=== PATIENT | male | born 1965 | race Caucasian/White ===

== ENCOUNTER → 2016-12-10 | Outpatient (CLI) | payer OTHER ==
[2016-12-13 08:09] LABS: PSA TOTAL <0.1 ng/mL (0.0-4.0)
== END ==
LOC: M WUC 10:46
PROVIDERS: ATTEND Nurse Practitioner Adult Health
DX: C61 Malignant neoplasm of prostate (principal)

== ENCOUNTER → 2018-03-21 | Outpatient (CLI) | payer OTHER ==
[2018-03-21 19:50] LABS: PROSTATIC SPECIFIC AG MONITOR < 0.01 NG/ML (< 4.0)
== END ==
LOC: M WUC 14:11
DX: Z85.46 Personal history of malignant neoplasm of prostate (principal)
CPT/HCPCS: 84153

== ENCOUNTER → 2018-10-28 | Outpatient (CLI) | payer OTHER | LOC: M WUC 08:54 | PROVIDERS: ATTEND Nurse Practitioner Adult Health | DX: Z85.46 Personal history of malignant neoplasm of prostate (principal) ==

== ENCOUNTER → 2019-05-07 | Outpatient (CLI) | payer OTHER | LOC: M WUC 17:01 | PROVIDERS: ATTEND Nurse Practitioner Adult Health | DX: Z85.46 Personal history of malignant neoplasm of prostate (principal) ==

== ENCOUNTER → 2019-06-20 | Outpatient (CLI) | payer OTHER ==
--- NOTE | 2019-06-24 07:33 | SLEEPCENT ---
DATE OF STUDY: 06/20/2019 ORDERED BY: Henrietta Christina Nocturnal polysomnography was performed for evaluation of sleep physiology in this patient with a history of snoring and excessive daytime somnolence. 8 hours and 5 minutes of data were reviewed. There were 273 minutes of sleep identified. Sleep latency was prolonged at 67. REM latency further prolonged at 382 minutes. Sleep architecture showed poor progression, frequent periods of awake and only one REM cycle late in the study. Overall sleep efficiency was 56.9%. The electrocardiogram showed a sinus rhythm with an average heart rate of 64 beats per minute. EEG showed no focal events and normal waveforms for awake and sleep stages. There were 208 respiratory events identified of 10 seconds in duration or greater for an apnea-hypopnea index of 45.7. The events were primarily obstructive not exclusive to sleep stage nor body posture. Arousals from respiratory events occurred 17.8 times per hour and oxygen desaturations were seen into the 80s with some activity in the limb leads, but arousals were few and remaining measures of sleep physiology were normal. IMPRESSIONS: Obstructive sleep apnea syndrome (G4 7.33). Apnea-hypopnea index 45.7. RECOMMENDATIONS: The patient should be encouraged to return to sleep disorder center for pressure therapy. In the interim alcohol and sedative avoidance should be practiced and caution exercise during the operation of motor vehicles. cc: Judd Terry Jr, MD
== END ==
LOC: M SLEEP 19:39
PROVIDERS: ATTEND Nurse Practitioner Adult Health
DX: G47.30 Sleep apnea, unspecified (principal)

== ENCOUNTER → 2019-08-01 | Outpatient (CLI) | payer OTHER ==
--- NOTE | 2019-08-05 12:34 | SLEEPCENT ---
DATE OF PROCEDURE: 08/01/2019 ORDERED BY: Mary Ann Christina NP Nocturnal polysomnography was performed for the titration of pressure therapy in this patient with severe obstructive sleep apnea syndrome. Apnea-hypopnea index 45.7. For testing, a ResMed Air Touch full face mask of medium size was used, 4 cm of water pressure were applied to the circuit and the lights were extinguished. 8 hours and 49 minutes of data were reviewed. There were 307 minutes of sleep identified. Sleep latency was mildly prolonged 22.5 minutes. REM latency was more so prolonged at 419 minutes. Sleep architecture improved with optimal pressure therapy. Overall sleep efficiency was 58.6%. The electrocardiogram showed a sinus rhythm with an average heart rate of 60 beats per minute. EEG showed normal waveforms for awake and sleep. Respiratory events were reasonably palliated with C-PAP to a pressure of +11. There was some persistent activity in the limb leads throughout. Limb movement arousal index was 10.4. IMPRESSION: Obstructive sleep apnea syndrome (G47.33) RECOMMENDATIONS: Nightly use of pressure therapy 11 cm of water.
== END ==
LOC: M SLEEP 19:44
PROVIDERS: ATTEND Nurse Practitioner Adult Health
DX: G47.33 Obstructive sleep apnea (adult) (pediatric) (principal)

== ENCOUNTER → 2019-11-05 | Outpatient (CLI) | payer OTHER ==
[2019-11-06 23:07] LABS: PSA TOTAL <0.1 ng/mL (0.0-4.0)
== END ==
LOC: M WUC 09:43
PROVIDERS: ATTEND Nurse Practitioner Adult Health
DX: Z85.46 Personal history of malignant neoplasm of prostate (principal)

== ENCOUNTER → 2020-02-11 | Outpatient (REF) | payer OTHER ==
[2020-02-11 18:24] LABS: ESTIMATED AVERAGE GLUCOSE 355 MG/DL (60-110); HEMOGLOBIN A1c > 14.0 %
[2020-02-13 04:11] LABS: LDL DIRECT 47 mg/dL (0-99)
== END ==
LOC: M LAB REF 16:23
PROVIDERS: ATTEND Internal Medicine
DX: E78.00 Pure hypercholesterolemia, unspecified (principal)

== ENCOUNTER → 2020-02-24 | Outpatient (REF) | payer OTHER ==
[2020-02-28 03:07] LABS: Alkaline Phosphatase Iso-Bone 24 % (12-68); Alkaline Phosphatase Iso-Intes 25 % (0-18); Alkaline Phosphatase Iso-Liver 51 % (13-88); TOTAL ALK PHOS 99 IU/L (39-117)
== END ==
LOC: M LAB REF 16:34
PROVIDERS: ATTEND Internal Medicine
DX: R74.8 Abnormal levels of other serum enzymes (principal)

== ENCOUNTER → 2020-06-14 | Outpatient (CLI) | payer OTHER | LOC: M WUC 09:19 | PROVIDERS: ATTEND Nurse Practitioner Adult Health | DX: Z85.46 Personal history of malignant neoplasm of prostate (principal) | CPT/HCPCS: 36415; G0103 ==

== ENCOUNTER → 2020-11-17 | Outpatient (CLI) | payer OTHER ==
--- NOTE | 2020-11-17 08:19 | REP ---
INDICATION: RUQ PAIN COMPARISON: None. TECHNIQUE: Real time dumont scale ultrasound examination using curved array transducer. FINDINGS: Liver demonstrates multiple non cystic hypoechoic ovoid lesions scattered throughout the liver the largest of which is identified in the right lobe measuring 7.1 x 4.1 x 7.4 cm. These lesions are relatively new as compared to CT dated 04/20/2007 Pancreas is incompletely evaluated due to interposed bowel gas. The gallbladder is normal and without gallstones, wall thickening, or pericholecystic fluid. No biliary ductal dilatation is appreciated and the common bile duct measures 3.9 mm diameter. Right kidney is normal in reniform shape without hydronephrosis and measures 10.8 x 6.8 x 6.7 cm. No ascites in the visualized right upper quadrant. IMPRESSION: 1. Multiple hypoechoic presumed mass lesions throughout the liver measuring up to 7.1 cm. Findings are nonspecific by ultrasound and differential ranges from benign to malignant lesions. Pre and postcontrast CT of the abdomen and pelvis is recommended for further investigation. <Electronically signed by Neil Sidhu > 11/17/20 [id number]
== END ==
LOC: M RAD 07:05
PROVIDERS: ATTEND Internal Medicine
DX: R10.11 Right upper quadrant pain (principal)

== ENCOUNTER → 2020-11-26 | Outpatient (CLI) | payer OTHER ==
[~2020-11-26] MED LIST: ACET1TAB55; BD P0.9I2; CEFP200T PO; CREO3600; FENO145T7 PO; GASTROGRAFIN SOLUTION 30ML (Q9963) As Ordered ONE; ISOVUE-370 76% 100ML VIAL As Ordered ONE; JARD1TAB PO; METF500T13 PO; METR-265 PO; ONDA-84; PROC10TA5; ZOLO100T; ZOLO100T PO
== END ==
LOC: M RAD 15:29
PROVIDERS: ATTEND Internal Medicine
DX: D37.6 Neoplasm of uncertain behavior of liver, gallbladder and bile ducts (principal)
CPT/HCPCS: 74178; Q9963; Q9967

== ENCOUNTER → 2021-02-09 | Outpatient (CLI) | payer OTHER | LOC: M WUC 09:52 | PROVIDERS: ATTEND Nurse Practitioner Adult Health | DX: Z85.46 Personal history of malignant neoplasm of prostate (principal) ==

== ENCOUNTER 2021-05-22 15:34 | Inpatient (IN) | payer OTHER ==
[~2021-05-22] VITALS: Ht 172.7 cm; Wt 83.3 kg
[2021-05-22] MEDS ORDERED: ZOLO100T (16:33)
[2021-05-22] MEDS ORDERED: PROC10TA4 (16:33)
[2021-05-22] MEDS ORDERED: JARD1TAB PO (16:33)
[2021-05-22] MEDS ORDERED: CEFP200T PO (16:33)
[2021-05-22] MEDS ORDERED: ZOLO100T PO (16:33)
[2021-05-22] MEDS ORDERED: ACET1TAB55 (16:33)
[2021-05-22] MEDS ORDERED: METR-265 PO (16:33)
[2021-05-22] MEDS ORDERED: CREO3600 (16:33)
[2021-05-22] MEDS ORDERED: METF500T13 PO (16:33)
[2021-05-22] MEDS ORDERED: ONDA8TAB10 (16:33)
[2021-05-22] MEDS ORDERED: FENO145T7 PO (16:33)
[2021-05-22] MEDS ORDERED: BD P0.9I2 (16:33)
--- NOTE | 2021-05-22 16:34 | REP ---
INDICATION: weakness COMPARISON: 04/20/2007 TECHNIQUE: Portable AP view of the chest FINDINGS: The mediastinum and cardiac silhouette are stable and within normal limits for portable technique. The lung ann are clear without acute consolidation, effusion, or pneumothorax. Skeletal structures are intact. IMPRESSION: No acute cardiopulmonary process appreciated. <Electronically signed by Neil Siduh > 05/22/21 [id number]
[2021-05-22 16:37] LABS: MEAN CORPUSCULAR HEMOGLOBIN 30.3 pg (27.0-33.0); MEAN CORPUSCULAR HGB CONC 31.3 g/dl (32.0-36.5); PLATELET COUNT, AUTOMATED 363 10^3/uL (150-450); WHITE BLOOD COUNT 15.6 10^3/uL (4.0-10.0)
[2021-05-22 16:49] LABS: INR 1.37; PROTHROMBIN TIME 17.3 SECONDS (12.7-14.5)
[2021-05-22 16:50] LABS: PARTIAL THROMBOPLASTIN TIME 54.9 SECONDS (25.9-37.0)
[2021-05-22 16:58] LABS: EOSINOPHILS 1 % (0-3); LYMPHOCYTES 11 % (16-44); METAMYELOCYTES 1 % (0-0); MONOCYTES 8 % (0-5); MYELOCYTES 1 % (0-0); NEUTROPHILS 75 % (28-66); PLATELET ESTIMATE NORMAL (NORMAL)
[2021-05-22 16:59] LABS: ANISOCYTOSIS 1+; HYPOCHROMASIA 1+
[2021-05-22] MEDS ORDERED: NS 1,000 ML IV ONE (17:05)
[2021-05-22 17:11] LABS: ACETAMINOPHEN LEVEL < 2.0 UG/ML (10.0-30.0); ALBUMIN 2.3 GM/DL (3.2-5.2); ALT/SGPT 107 U/L (12-78); BILIRUBIN,DIRECT 5.1 MG/DL (0.0-0.2); BILIRUBIN,TOTAL 5.5 MG/DL (0.2-1.0); BLOOD UREA NITROGEN 69 MG/DL (7-18); CALCIUM LEVEL 12.9 MG/DL (8.5-10.1); CARBON DIOXIDE LEVEL 22 MEQ/L (21-32); CHLORIDE LEVEL 97 MEQ/L (98-107); CREATININE FOR GFR 1.96 MG/DL (0.70-1.30); ETHYL ALCOHOL (ETHANOL) < 0.003 % (0.000-0.010); GLOMERULAR FILTRATION RATE 37.7 (>56); GLUCOSE, FASTING 112 MG/DL (70-100); POTASSIUM SERUM 4.4 MEQ/L (3.5-5.1); SODIUM LEVEL 128 MEQ/L (136-145); TOTAL PROTEIN 6.3 GM/DL (6.4-8.2)
[2021-05-22 17:56] LABS: SALICYLATE LEVEL < 1.7 MG/DL (5.0-30.0)
[2021-05-22] MEDS ORDERED: GLUCOSE 4GM CHEW TABLET PO PRN (18:30)
[2021-05-22] MEDS ORDERED: GLUCAGON INJ 1MG VIAL SC PRN (18:30)
[2021-05-22] MEDS ORDERED: DEXTROSE 50% 50 ML SYRINGE IV PRN (18:30)
[2021-05-22 19:13] LABS: RSV AMPLIFICATION NEGATIVE (NEGATIVE)
[2021-05-22] MEDS ORDERED: HOME MED LIST COMPLETE! XX SCH (19:15)
[2021-05-22] MEDS ORDERED: HumaLOG INSULIN (NovoLOG) PER UNIT SC SCH (20:00)
[2021-05-22] MEDS ORDERED: NS 1,000 ML IV SCH (20:35)
[2021-05-22 21:03] LABS: CALCIUM LEVEL 12.1 MG/DL (8.5-10.1); CREATININE FOR GFR 1.82 MG/DL (0.70-1.30); GLOMERULAR FILTRATION RATE 41.1 (>56); POTASSIUM SERUM 4.6 MEQ/L (3.5-5.1)
[2021-05-22] MEDS: CEFDINIR 300 MG CAP (OMNICEF) PO SCH (21:28)
[2021-05-22] MEDS: metroNIDAZOLE (FLAGYL) 500MG TABLET PO SCH (21:28)
[2021-05-22 21:39] LABS: INR 1.4; PROTHROMBIN TIME 17.6 SECONDS (12.7-14.5)
[2021-05-22 21:40] LABS: PARTIAL THROMBOPLASTIN TIME 52.5 SECONDS (25.9-37.0)
[2021-05-22 21:49] LABS: FERRITIN 1910 NG/ML (26-388); IRON (FE) 38 UG/DL (65-175); MAGNESIUM LEVEL 2.5 MG/DL (1.8-2.4); PERCENT SATURATION 18.4 % (19.7-50.0); TOTAL IRON BINDING CAPACITY 207 UG/DL (250-450)
[2021-05-22] MEDS ORDERED: SODIUM CHLORIDE 0.9% INJ 10 ML SYR IV PRN ×2 (21:50)
[2021-05-22 22:14] LABS: AMPHETAMINES LEVEL URINE NEGATIVE (NEGATIVE); BARBITURATES URINE NEGATIVE (NEGATIVE); BENZODIAZEPINES URINE NEGATIVE (NEGATIVE); CANNABINOIDS URINE NEGATIVE (NEGATIVE); COCAINE METABOLITE URINE NEGATIVE (NEGATIVE); METHADONE URINE NEGATIVE (NEGATIVE); OPIATES URINE NEGATIVE (NEGATIVE); PHENCYCLIDINE URINE NEGATIVE (NEGATIVE)
--- NOTE | 2021-05-22 22:17 | HPEPDOC ---
General Date of Admission 05/22/20 Date of Service: May 22, 2021 Chief Complaint The patient is a 55-year-old male admitted with a reason for visit of Weakness. Source: Patient History of Present Illness Som Rajput is a 55-year-old male with significant medical history of pancreatic cancer with mets to liver spleen and probable bilateral lung bases who arrives with generalized fatigue/weakness. Reportedly, per ED and patient's at bedside who assist with HPI, patient was both lethargic and somewhat confused/ mumbling upon initial arrival. Of note, [facility] having 2 biliary drains placed when he had an increase in abdominal pain and jaundice after completing chemo regimen. Patient underwent MRCP and imaging during that time, however there was an intrahepatic biliary duct dilation and a biliary stent was attempted however given the description there may have been some scar tissue or the lesions on the liver itself because the stent dislodged/ unable to stabilized and thus, patient required two biliary drains placed; one on the left upper quadrant and one towards the right of the abdomen. During that time patient's reports that patient just had not been feeling well given the hospitalization and the elevated bili and had poor po intake. He was stable at time of d/c, but progressively at home patient "just had no appetite" and decreased p.o. intake while his drains were still draining. Patient was given bolus in ED and lab work completed which showed elevated creatinine 1.96 and other electrolyte/metabolic derangements. Patient seen at bedside and fortunately by time of exam patient sitting up alert oriented x3 appeared jaundiced but not acutely ill and eating pudding comfor tably without complaints. Patient reports that he feels "better" and almost at baseline. Pt denies stone, sinus congestion, sore throat, productive cough, sob, palpitations, chest pain, n/v, abdominal pain, weakness, sensory changes or syncope. He reports the biliary drains are stable, R drain has less output than left since placement, but is typically darker. At first placement there was bloody yellow output to bag, but now it is more bilious green for both. Dressings CDI and pt reports 0/10 abdominal pain. When asked regarding any barriers to eating he reports "just did not feel like it" but he now endorses interest in eating pizza. Other ROS, Patient does endorse episode of loose stool today but this is not uncommon since he has been undergoing treatment and taking antibiotics for the past 6 days as part of his d/c medications from [facility] with the biliary drain. Patient will be admitted for further evaluation management of presenting concerns. Home Medications Scheduled Cefpodoxime Proxetil (Cefpodoxime Proxetil) 200 Mg Tablet, 400 MG PO BID, (Reported) started 05/17/21 x 10 days Empagliflozin (Jardiance) 10 Mg Tablet, 10 MG PO DAILY, (Reported) Fenofibrate Nanocrystallized (Fenofibrate) 145 Mg Tablet, 145 MG PO DAILY, (Reported) Metformin HCl (Metformin HCl) 500 Mg Tablet, 1,000 MG PO BID, (Reported) Metronidazole (Metronidazole) 500 Mg Tablet, 500 MG PO Q8H, (Reported) started 05/17/21 x 10 days Sertraline Hcl (Zoloft) 100 Mg Tablet, 150 MG PO DAILY, (Reported) Allergies Coded Allergies: penicillin V (Verified Allergy, Unknown, 05/22/21) Past Medical History Medical History Pancreatic cancer with mets to liver spleen and probable bilateral lung basesrecently full [place] regimen completed April 2021, diabetes,depression Surgical History Biliary drain placement Family History Significant Family History: No pertinent family hx Social History * Smoker: non-smoker Alcohol: Denies (Denies EtOH use since diagnosis) Drugs: denies Recent Travel/Sick Contacts: Denies: Recent travel, Recent sick contacts Psychosocial History: Depression , lives with A-FIB/[facility]ADSVASC A-FIB History Current/History of A-Fib/PAF?: No Current PO Anticoag Therapy: No Review of Systems Constitutional: Reports: Weakness, Fatigue; Denies: Chills, Fever, Night Sweats Eyes: Denies: Pain, Vision change ENT: Denies: Head Aches, Ear Pain, Dysphagia Skin: Denies: Rash, Lesions, Breakdown Pulmonary: Denies: Dyspnea, Cough Cardiovascular: Denies: Chest Pain, Palpitations, Orthopnea, Paroxysmal Noc. Dyspnea, Lt Headedness Gastrointestinal: Reports: Other Symptoms (poor appetite); Denies: Nausea, Vomiting, Abdominal Pain, Diarrhea Genitourinary: Denies: Dysuria, Frequency, Incontinence, Retention Hematologic: Denies: Bruising, Bleeding Excessively Musculoskeletal: Denies: Neck Pain, Back Pain, Joint Pain, Muscle Pain, Spasms Neurological: Denies: Weakness, Numbness, Change in speech, Confusion Psych: Denies: Depression, Memory Issues Physical Examination General Exam: Positive: No Acute Distress, Other (lethargic) Eye Exam: Positive: PERRLA, Conjunctiva & lids normal, EOMI; Negative: Sclera icteric ENT Exam: Positive: Atraumatic, Mucous membr. moist/pink, Pharynx Normal Neck Exam: Positive: Supple; Negative: JVD, thyromegaly Chest Exam: Positive: Rales (fine, RLL) Heart Exam: Positive: Regular Rhythm, Normal S1, Normal S2; Negative: Murmurs, Rubs Abdomen Exam: Positive: Soft, Other (+ r and left biliary drains); Negative: Tenderness, Hepatospenomegaly Extremity Exam: Positive: Normal pulses; Negative: Clubbing, Cyanosis, Edema Skin Exam: Positive: Other skin issue (+jaundice); Negative: Nl turgor and temperature, Breakdown, Lesion Neuro Exam: Positive: Normal Speech, Cranial Nerves 3-12 NL, Reflexes 2+; Negative: Normal Gait Psych Exam: Positive: Mental status NL, Mood NL, Oriented x 3 Vital Signs Vital Signs Date Time Temp Pulse Resp B/P (MAP) Pulse Ox O2 Delivery O2 Flow Rate FiO2 05/22/21 18:04 71 97 05/22/21 18:00 17 96/69 (78) 05/22/21 16:01 97.8 Room Air Laboratory Data Labs 24H Laboratory Tests 2 05/22/21 16:16: Neutrophils (%) (Auto) , Nucleated Red Blood Cells % (auto) 0.0, Neutrophils 75H, Band Neutrophils 3, Lymphocytes (Manual) 11L, Monocytes (Manual) 8H, Eosinophils (Manual) 1, Metamyelocytes 1H, Myelocytes 1H, Hypochromasia 1+, Anisocytosis 1+, Toxic Vacuolation , Platelet Estimate NORMAL, Prothrombin Time 17.3H, Prothromb Time International Ratio 1.37, Activated Partial Thromboplast Time 54.9H, Anion Gap 9, Glomerular Filtration Rate 37.7L, Lactic Acid Level 0.5, Calcium Level 12.9H, Total Bilirubin 5.5H, Direct Bilirubin 5.1H, Aspartate Amino Transf (AST/SGOT) 52H, Alanine Aminotransferase (ALT/SGPT) 107H, Alkaline Phosphatase 397H, Ammonia < 10, Total Protein 6.3L, Albumin 2.3L, Albumin/Gl obulin Ratio 0.6, Thyroid Stimulating Hormone (TSH) 1.960, Salicylates Level < 1.7L, Acetaminophen Level < 2.0L, Ethyl Alcohol Level < 0.003 05/22/21 16:27: POC Troponin I (Misc) 0.00 05/22/21 18:25: CBC/BMP Laboratory Tests 05/22/21 16:16 Microbiology Microbiology 05/22/21 Blood Culture, Received Pending 05/22/21 Blood Culture, Received Pending Assessment/Plan 1. MIK: Creat 0.86 to 1.96, In setting of poor PO intake and biliary drain output -Monitor fluid balance, I's and O's, urinary output -Hydrate with consideration of hepatic dysfunction to not overcorrect/ overload pt -Avoid nephrotoxins as able -A.m. labs -Consider nephrology consult pending patient response 2. Hyponatremia: Na 128, stable compared to d/c on 05/17 from [facility]. He ranged 129-136 Per chart review. -Hydration given above, check UA, urine sodium for consideration of differential 3. Pancreatic Metastatic Cancer: Mets to liver, spleen and presumed lung bases -F/u with [facility] specialist upon d/c, next appt in 2 weeks 4. Hypercalcinemia and transaminitis: In setting of metastatic liver disease with biliary drain placed post biliary stent failure 05/16/21 -Bili decreased from [facility] total and direct 7.8 and 6.5 to bili 5.5 to 5.1 respectively -Continue monitoring drains; flush twice daily as needed if output low or patient with symptoms of possible obstruction -Pt will be on tele monitoring given electrolyte imbalance -Hydration noted above -Serial BMP -Am labs, check pth, rpth, vit d given elevated calcium -consider if need for other Ca lowering agents pend clinical course 5. DM: Blood glucose upon arrival 112 -Check A1c. -Monitor patient blood glucose ACHS -Sliding scale insulin -A.m. labs. 6. Leukocytosis: Likely reactive with above conditions. Pt afebrile, normotensive and not tachycardic. Lactic not elevated. CXR nonacute. UA pend. BC were sent. -Monitor for s/s infection -Pt has multiple nodules of lung and suspected mets to lung; fine RLL rales auscultated, but pt without resp complaints and cxr nonacute. Will check procalc and Add IS -We will continue patient p.o. antibiotics from [place] with [facility] which include Vantin to be transition to Omnicef due to formulary availability, and p.o. Flagyl -Should patient have any infectious markers elevate or clinical changes would escalate antibiotics to IV DVT: SCDs, addition of hep sq pend coag panel CODE Status: Confirmed at this time - with present clinical status, patient wishes to be full code. at bedside and supports patient's wishes Dispo planning: Home once creatinine normalizes Plan / VTE VTE Prophylaxis Ordered?: Yes MIC ALLEN HEAD SAMPLER May 22, 2021 18:54
[2021-05-22] MEDS: NYSTATIN 500,000 U/5 ML SUSP UDC SS SCH (22:25)
[2021-05-22 22:35] LABS: OSMOLALITY URINE 629 MOSM/KG (50-1400)
[2021-05-22 22:42] LABS: SODIUM,RANDOM URINE < 10 MEQ/L
[2021-05-23 01:08] LABS: CREATININE FOR GFR 1.73 MG/DL (0.70-1.30); GLOMERULAR FILTRATION RATE 43.6 (>56); POTASSIUM SERUM 4.5 MEQ/L (3.5-5.1)
[2021-05-23 05:44] LABS: BASO % 0.3 % (0.0-1.0); EOS # 0.1 10^3/uL (0.0-0.5); EOS % 0.7 % (0.0-3.0); HEMATOCRIT 27.3 % (42.0-52.0); HEMOGLOBIN 8.5 g/dl (13.5-17.5); LYMPH % 7.7 % (24.0-44.0); MEAN CORPUSCULAR HEMOGLOBIN 30.1 pg (27.0-33.0); MEAN CORPUSCULAR HGB CONC 31.1 g/dl (32.0-36.5); MEAN CORPUSCULAR VOLUME 96.8 fl (80.0-96.0); MONO # 1.5 10^3/uL (0.0-0.8); MONO % 11.2 % (2.0-8.0); NEUTROPHILS # 10.5 10^3/uL (1.5-8.5); NEUTROPHILS % 77.9 % (36.0-66.0); PLATELET COUNT, AUTOMATED 346 10^3/uL (150-450); RED BLOOD COUNT 2.82 10^6/uL (4.30-6.10); WHITE BLOOD COUNT 13.4 10^3/uL (4.0-10.0)
[2021-05-23 06:06] LABS: HEMOGLOBIN A1c 5.3 %
[2021-05-23 06:07] LABS: ALBUMIN 1.9 GM/DL (3.2-5.2); BILIRUBIN,TOTAL 4.7 MG/DL (0.2-1.0); CALCIUM LEVEL 12.4 MG/DL (8.5-10.1); CREATININE FOR GFR 1.59 MG/DL (0.70-1.30); POTASSIUM SERUM 4.4 MEQ/L (3.5-5.1); TOTAL PROTEIN 6.5 GM/DL (6.4-8.2)
[2021-05-23] MEDS: metroNIDAZOLE (FLAGYL) 500MG TABLET PO SCH ×3 (06:20→20:56)
--- NOTE | 2021-05-23 06:21 | ECGEPIP ---
[facility] - ED Test Date: 2021-05-22 Pat Name: NORRIS ALVAREZ Department: Room: - Gender: Male Vp Research: JEANETTE : 1965 Requested By: BRAYAN MARTÍNEZ Order Number: [id number] Reading MD: Yanci Karimi Measurements Intervals [place] Rate: 82 P: 26 ND: 142 QRS: 34 QRSD: 94 T: 8 QT: 338 QTc: 394 Interpretive Statements Normal sinus rhythm Nonspecific T wave abnormality No prior ECG for comparison Electronically Signed on 05-23-2021 6:20:29 EST by Yanci Karimi
[2021-05-23] MEDS ORDERED: HumaLOG INSULIN (NovoLOG) PER UNIT SC SCH ×2 (07:30→21:00)
[2021-05-23 08:07] LABS: CALCIUM LEVEL 12.4 MG/DL (8.5-10.1); CREATININE FOR GFR 1.58 MG/DL (0.70-1.30); GLOMERULAR FILTRATION RATE 48.4 (>56); POTASSIUM SERUM 4.5 MEQ/L (3.5-5.1)
[2021-05-23] MEDS: SODIUM CHLORIDE 0.9% INJ 10 ML SYR IV SCH (08:29)
[2021-05-23] MEDS: NYSTATIN 500,000 U/5 ML SUSP UDC SS SCH ×4 (08:30→20:56)
[2021-05-23] MEDS: FENOFIBRATE 145MG TABLET (TRICOR) PO SCH (08:30)
[2021-05-23] MEDS: SERTRALINE HCL 50 MG TAB PO SCH (08:31)
[2021-05-23] MEDS: CEFDINIR 300 MG CAP (OMNICEF) PO SCH ×2 (08:31→20:55)
[2021-05-23 09:44] LABS: PTH INTACT < 6.3 PG/ML (18.5-88.0); VITAMIN B12 LEVEL 1591 PG/ML (247-911)
--- NOTE | 2021-05-23 10:25 | REP ---
INDICATION: acute renal failure. COMPARISON: CT 11/26/2020. TECHNIQUE: Real-time sonographic evaluation of the kidneys is performed. FINDINGS: Renal cortical echogenicity pattern is normal bilaterally and contours are smooth. There is no evidence of hydronephrosis, cyst, mass, or calculus in either kidney. The right kidney measures 12.3 x 5.6 x 6.6 cm. Left renal dimensions are 12.4 x 4.7 x 6.9 cm. The urinary bladder is unremarkable. IMPRESSION: Negative renal ultrasound. <Electronically signed by Arley Galvez > 05/23/21 1021
[2021-05-23 14:10] VITALS: BP 116/74
[2021-05-23 14:38] LABS: CREATININE FOR GFR 1.5 MG/DL (0.70-1.30); GLOMERULAR FILTRATION RATE 51.4 (>56); POTASSIUM SERUM 4.4 MEQ/L (3.5-5.1)
[2021-05-23] MEDS: CALCITONIN SALMON (MIACALCIN) 400INTERNATIONAL UNITS/2ML INJ (J0630) SQ SCH ×2 (14:42→20:56)
[2021-05-23] MEDS: HEPARIN SOD (PORCINE) 5000UNITS/ML 1ML VIAL/SYRINGE SQ SCH ×2 (14:42→20:56)
--- NOTE | 2021-05-23 18:15 | IPNPDOC ---
Date Seen The patient was seen on 05/23/21. Progress Note SUBJECTIVE: Lyndon is a 55-year-old male who presented to the ED on 05/22/2021 complaining of generalized fatigue and weakness. He was recently discharged from [facility] 6 days ago (05/17/2021) after having 2 biliary drains placed in the setting of abdominal pain and jaundice with active pancreatic cancer and metastases to liver, spleen and suspected bilateral lung bases. In addition to the metastatic pancreatic cancer, patient has a history of prostate cancer s/p radical prostatectomy and diagnosed 4 years ago. During the [facility] hospitalization, MRCP showed intrahepatic biliary duct dilation. Initially biliary stent was attempted but per reports, the stent was dislodged and p ossibly migrated to the gallbladder, and thus 2 biliary drains were placed. Ever since he was discharged on 1227, patient reports increased lethargy which was corroborated by his upon admission. In addition to appearing more tired, the patient had been consuming less p.o. intake with significantly decreased appetite. Upon presentation to the [facility] ED, patient was found to have hyponatremia as well as leukocytosis, hypercalcemia, and acute renal failure. He received NS fluid hydration and outpatient Flagyl and cefdinir were continued upon admission (had been on these prophylactically since receiving the bilateral drains). Lyndon was seen and examined this morning (05/23/2021) by the hospitalist service while lying upright in his ED bed. He reports generalized weakness, but reports that his strength is mildly improved from when he came in last night. He denies any current or overnight fever, chills, night sweats, chest pain, chest pressure, palpitations, shortness of breath, cough, abdominal pain/nausea/vomiting/blood in stool. He does report an episode of loose stool on 05/22 but since he began the antibiotics upon [facility] discharge this is been his norm. He was able to tolerate some breakfast this morning in the form of some fruit, cereal, and half of a muffin. He is drinking water as well at the bedside. OBJECTIVE PHYSICAL EXAMINATION: VITAL SIGNS: Please see below. GENERAL: Pleasant white male lying upright in bed. He is jaundiced with scleral icterus. Does not appear to be in any acute distress HEENT: NC, AT. Jaundiced. Bilateral scleral icterus. Oral cavity: MMM. Neck: No supraclavicular or cervical lymphadenopathy appreciated Chest: There is a port in place in the right upper chest. There is no surrounding erythema or induration of the skin around the port. CARDIOVASCULAR: Somewhat distant heart sounds. Regular rate, regular rhythm. Normal S1, S2. No significant murmurs or rubs appreciated but again this is in the context of distant heart sounds. RESPIRATORY: Slightly decreased tidal volume with no significant adventitious breath sounds appreciated. Breathing room air and speaking full sentences. No visualized accessory muscle use. Symmetric chest expansion ABDOMINAL: There are [address], 1 in the left upper abdominal quadrant, while the other is on the right flank. There is minimal serous drainage in the right drain, with a significant amount of dark yellow to brown drainage in the left drain. Both drain insertion sites have surrounding intact skin with no erythema, induration or discharge. Normoactive bowel sounds. Negative Andre sign with tenderness of the right lower quadrant and supraumbilically. There is no rigidity appreciated. EXTREMITIES: 2+ radial pulses bilaterally. Bilateral lower extremities are free of pitting edema. NEUROLOGICAL: No gross focal neurologic deficits appreciated. Nondysarthric spe ech. Responding appropriate all questions commands. PSYCHOLOGICAL: Mood and affect appear appropriate LABORATORY DATA, IMAGING STUDIES, MICROBIOLOGY: Please see below. 1 view chest x-ray, 05/22/2021 FINDINGS: The mediastinum and cardiac silhouette are stable and within normal limits for portable technique. The lung ann are clear without acute consolidation, effusion, or pneumothorax. Skeletal structures are intact. IMPRESSION: No acute cardiopulmonary process appreciated. ASSESSMENT AND PLAN: This is a 55-year-old male who presented to the ED on 05/22/2021 with increased lethargy and generalized weakness five days after being discharged from [facility] after having bilateral biliary drains placed in the setting of abdominal pain and jaundice with known metastatic pancreatic cancer (mets to liver, spleen, and possibly bilateral lungs). He also has known past history of prostate cancer (dx 4 ya) s/p radical prostatectomy. Patient was found to have acute renal failure as well as hyponatremia, macrocytic anemia, leukocytosis with bandemia, and hypercalcemia. #Leukocytosis with bandemia -Likely 2/2 active metastatic neoplastic disease -Initial lactic acid unremarkable; patient has been hemodynamically stable and afebrile since admission; pro-Ashutosh was significant at 5.6 -Home cefdinir and metronidazole were continued upon admission; patient is on day #6 of these antimicrobials which were started prophylactically after bilateral drains were placed at [facility] last week -S/p 1 L NS bolus followed by scheduled 80 cc an hour NS; IV fluids stopped once tolerating oral diet and sodium corrected 6 points #Acute renal failure, improved -Initial serum creatinine 1.96; has improved steadily on repeats, with most recent value of 1.58 on morning of 05/23 -Likely 2/2 poor oral intake since hospital discharge last week as well as fluid loss through bilateral biliary drains -Only baseline comparison is from 2006, when creatinine was 1.3 and GFR was greater than 60%; presence of CKD unknown -Patient received 1 L NS bolus in the ED and then had been on 80 cc an hour of scheduled NS; with improvement in renal function, tolerance of oral intake, and increase in sodium from 128-134; IVF subsequently stopped -Urine sodium was ordered and was less than 10, but no urine creatinine or serum osmolality initially ordered; these have been added on as has a renal ultrasound #Hyponatremia- likely 2/2 bilateral biliary drain placement -Patient had very concentrated urine with urine sodium less than 10 -Hyponatremia likely as a result of the biliary drains as biliary fluid is known to have a significant concentration of sodium; on review of peer-reviewed articles, seems to be a known side effect of trains I/S/O pancreatic cancer -Consideration down the line may be given to potential biliary drain internalization -Initial sodium 128 that corrected to 134 9 hours later (6 points in 9 hours); NS was stopped on morning of 05/23 -Have advised patient to focus on oral food intake, specifically foods that are solute rich; plan is to try and match the sodium loss with oral intake but this is usually difficult to achieve. -Have ordered a repeat BMP in 4 hours time to assess sodium status #Hypercalcemia- likely 2/2 malignancy -Initial serum calcium of 12.9; calcium 12.4 on repeat morning of 05/23 -Corrected calcium from 1 AM draw is 14.2 -Admitting team ordered hypercalcemia work-up which revealed significantly low PTH indicating that the elevated calcium is most likely due to active neoplastic process -Also consideration for concentration 2/2 dehydration -A repeat serum calcium has been ordered in 4 hours, with another repeat to be obtained your change of shift (1800 on 05/23); will also have repeat metabolic panel in morning 05/24 -We will initiate treatment in the form of calcitonin to be dosed 4 international units/kg IV bid #Macrocytic anemia -Initial hemoglobin and hematocrit of 10/30; repeat on morning 05/23 showed dropped to 8.5/27. MCV 96; type and screen of been ordered; no active sources of bleeding have been identified -There may be a component of dilution with fluid hydration I/S/O MIK #Metastatic pancreatic cancer -Reported mets to liver and spleen, with possible latest spread to bilateral lung bases -Patient follows with oncologist in [place] at [facility] (Dr. Allan) -Reports being diagnosed at the end of November/early December 2020; initiated biweekly chemotherapy treatments at the end of December 2020 -Patient reports completing roughly 8 treatments when at the end of March 2021, he had elevated biliary system lab work which necessitated the work-up and eventual hospitalization last month requiring bilateral drain plac ement -As stated above, likely contributing to patient's current hypercalcemia #Elevated AST/ALT/ALK Phos -most likely 2/2 to met pancreatic ca w/ known mets to Liver -will cont to follow on repeat CMPs #S/p radical prostatectomy following prostate cancer diagnosis -Patient was diagnosed with prostate cancer 4 years ago; tx was prostatectomy #DVT prophylaxis: Subcutaneous heparin in the setting of acute renal failure; of note platelet count WNL and monitoring Hgb CODE STATUS: Full code Disposition: Pending clinical improvement and electrolyte abnormalities as well as renal function; of note, patient's person of contact is his Heide. VS, I&O, 24H, Fishbone Vital Signs/I&O Vital Signs Date Time Temp Pulse Resp B/P (MAP) Pulse Ox O2 Delivery O2 Flow Rate FiO2 05/23/21 14:10 97.9 75 18 116/74 (88) 99 Room Air I&O- Last 24 Hours up to 6 AM 05/23/21 06:00 Intake Total 1240 ml Output Total 475 ml Balance 765 ml Laboratory Data 24H LABS Laboratory Tests 2 05/22/21 18:25: Coronavirus (COVID-19)(PCR) NEGATIVE, Influenza Type A (RT-PCR) NEGATIVE, Influenza Type B (RT-PCR) NEGATIVE, Respiratory Syncytial Virus (PCR) NEGATIVE 05/22/21 20:30: Anion Gap 9, Glomerular Filtration Rate 41.1L, Calcium Level 12.1H 05/22/21 21:00: Urine Color BHANU, Urine Appearance CLEAR, Urine pH 5.0, Urine Specific [place] 1.020, Urine Protein NEGATIVE, Urine Glucose (UA) 3+H, Urine Ketones NEGATIVE, Urine Blood NEGATIVE, Urine Nitrite NEGATIVE, Urine Bilirubin NEGATIVE, Urine Urobilinogen 0.2, Urine Leukocyte Esterase NEGATIVE, Urine WBC (Auto) 0, Urine RBC (Auto) 0, Urine Hyaline Casts (Auto) 3, Urine Bacteria (Auto) NEGATIVE, Urine Squamous Epithelial Cells 0, Urine Mucus (Auto) SMALL, Urine Sperm (Auto) 05/22/21 21:01: Prothrombin Time 17.6H, Prothromb Time International Ratio 1.40, Activated Partial Thromboplast Time 52.5H, Magnesium Level 2.5H, Iron Level 38L, Total Iron Binding Capacity 207L, Transferrin % Saturation 18.4L, Ferritin 1910H, Vitamin B12 Level 1591H, Parathyroid Hormone (Intact) < 6.3L 05/22/21 21:50: Urine Osmolality 629, Urine Random Sodium < 10, Urine Opiates Screen NEGATIVE, Urine Methadone Screen NEGATIVE, Urine Barbiturates Screen NEGATIVE, Urine Phencyclidine Screen NEGATIVE, Urine Amphetamines Screen NEGATIVE, Urine Benzodiazepines Screen NEGATIVE, Urine Cocaine Metabolite Screen NEGATIVE, Urine Cannabinoids Screen NEGATIVE 05/23/21 00:28: Anion Gap 5L, Glomerular Filtration Rate 43.6L, Calcium Level 12.0H 05/23/21 05:23: Anion Gap 6L, Glomerular Filtration Rate 48.0L, Calcium Level 12.4H, Immature Granulocyte % (Auto) 2.2, Neutrophils (%) (Auto) 77.9H, Lymphocytes (%) (Auto) 7.7L, Monocytes (%) (Auto) 11.2H, Eosinophils (%) (Auto) 0.7, Basophils (%) (Auto) 0.3, Neutrophils # (Auto) 10.5H, Lymphocytes # (Auto) 1.0L, Monocytes # (Auto) 1.5H, Eosinophils # (Auto) 0.1, Basophils # (Auto) 0.0, Nucleated Red Blood Cells % (auto) 0.0, Estimated Mean Plasma Glucose 105, Hemoglobin A1c 5.3, Total Bilirubin 4.7H, Aspartate Amino Transf (AST/SGOT) 43H, Alanine Aminotran sferase (ALT/SGPT) 83H, Alkaline Phosphatase 329H, Total Protein 6.5, Albumin 1.9L, Albumin/Globulin Ratio 0.4, Procalcitonin 5.63 05/23/21 07:23: Anion Gap 9, Glomerular Filtration Rate 48.4L, Calcium Level 12.4H, Osmolality 302H 05/23/21 08:04: Bedside Glucose (Misc Panel) 89 05/23/21 14:00: Anion Gap 8, Glomerular Filtration Rate 51.4L, Calcium Level 12.0H CBC/BMP Laboratory Tests 05/22/21 20:30 05/23/21 00:28 05/23/21 05:23 05/23/21 07:23 05/23/21 14:00 Microbiology Microbiology 05/22/21 Blood Culture - Preliminary, Resulted No growth after 24 hours . All specim... 05/22/21 Blood Culture - Preliminary, Resulted No growth after 24 hours . All specim... GME ATTESTATION GME ATTESTATION My faculty preceptor for this patient encounter was physically present during the encounter and was fully available. All aspects of the patient interview, examination, medical decision making process, and medical care plan development were reviewed and approved by the faculty preceptor. The faculty preceptor is aware and concurs with the plan as stated in the body of this note and will attest to such by his/her cosignature. ATTENDING NOTE I, Carlos Dennis MD, have independently examined this patient and performed my own physical exam while the residents and students were with me in the room, as well as reviewed the documentation and edited where necessary. I have discussed in detail with the resident / student the findings and plan of treatment as documented by the resident / student and edited their note. I agree with their findings and treatment plan and have edited their documentation. SWATI LOPEZ D.O. May 23, 2021 18:15 CARLOS DENNIS MD May 26, 2021 15:29
[2021-05-23 22:00] VITALS: BP 121/74
[2021-05-24] MEDS: metroNIDAZOLE (FLAGYL) 500MG TABLET PO SCH ×2 (05:48→13:48)
[2021-05-24] MEDS: HEPARIN SOD (PORCINE) 5000UNITS/ML 1ML VIAL/SYRINGE SQ SCH ×2 (05:48→13:48)
[2021-05-24 06:00] VITALS: BP 116/73
[2021-05-24 06:01] LABS: BASO # 0.1 10^3/uL (0.0-0.2); BASO % 0.5 % (0.0-1.0); EOS # 0.1 10^3/uL (0.0-0.5); EOS % 0.8 % (0.0-3.0); HEMATOCRIT 27.1 % (42.0-52.0); HEMOGLOBIN 8.6 g/dl (13.5-17.5); LYMPH # 1.2 10^3/uL (1.5-5.0); MEAN CORPUSCULAR HEMOGLOBIN 30.6 pg (27.0-33.0); MEAN CORPUSCULAR HGB CONC 31.7 g/dl (32.0-36.5); MEAN CORPUSCULAR VOLUME 96.4 fl (80.0-96.0); MONO # 1.5 10^3/uL (0.0-0.8); MONO % 9.9 % (2.0-8.0); NEUTROPHILS # 11.6 10^3/uL (1.5-8.5); NEUTROPHILS % 76.9 % (36.0-66.0); PLATELET COUNT, AUTOMATED 359 10^3/uL (150-450); RED BLOOD COUNT 2.81 10^6/uL (4.30-6.10); WHITE BLOOD COUNT 15.1 10^3/uL (4.0-10.0)
[2021-05-24 06:21] LABS: ALT/SGPT 73 U/L (12-78); BILIRUBIN,TOTAL 4.5 MG/DL (0.2-1.0); BLOOD UREA NITROGEN 56 MG/DL (7-18); CARBON DIOXIDE LEVEL 21 MEQ/L (21-32); CHLORIDE LEVEL 105 MEQ/L (98-107); CREATININE FOR GFR 1.27 MG/DL (0.70-1.30); GLOMERULAR FILTRATION RATE > 60.0 (>56); GLUCOSE, FASTING 135 MG/DL (70-100); MAGNESIUM LEVEL 2.4 MG/DL (1.8-2.4); POTASSIUM SERUM 4.1 MEQ/L (3.5-5.1); SODIUM LEVEL 136 MEQ/L (136-145); TOTAL PROTEIN 5.8 GM/DL (6.4-8.2)
[2021-05-24] MEDS: FENOFIBRATE 145MG TABLET (TRICOR) PO SCH (08:51)
[2021-05-24] MEDS: SERTRALINE HCL 50 MG TAB PO SCH (08:51)
[2021-05-24] MEDS: NYSTATIN 500,000 U/5 ML SUSP UDC SS SCH ×3 (08:51→15:34)
[2021-05-24] MEDS: CEFDINIR 300 MG CAP (OMNICEF) PO SCH (08:51)
[2021-05-24] MEDS: SODIUM CHLORIDE 0.9% INJ 10 ML SYR IV SCH (08:54)
--- NOTE | 2021-05-24 13:52 | DS.PDOC ---
Discharge Summary General Date of Admission May 22, 2021 at 18:26 Date of Discharge 05/24/21 Attending Physician: CARLOS DENNIS MD Discharge Summary PROCEDURES PERFORMED DURING STAY: None ADMITTING DIAGNOSES: -Fatigue -Weakness -Acute Kidney Injury -Diabetes Mellitus -Pancreatic cancer with metastases to liver/spleen/presumed lung bases -Hyponatremia -Hypercalcemia -Transaminitis -Leukocytosis -Depression -History of prostate cancer s/p radical prostatectomy DISCHARGE DIAGNOSES: -Leukocytosis with bandemia -Acute Kidney Injury -Hyponatremia secondary to biliary drain placement -Hypercalcemia -Macrocytic anemia -Pancreatic cancer with metastases to liver/spleen/presumed lung bases -transaminitis -Depression -Diabetes Mellitus -History of prostate cancer s/p radical prostatectomy COMPLICATIONS/CHIEF COMPLAINT: MIK. HISTORY OF PRESENT ILLNESS: Patient is a 55-year-old male who presented to the ED with generalized fatigue and weakness. The patient's accompanies him in the emergency department and reports that he has been both lethargic and confused over the last few days. Patient has a past medical history of pancreatic cancer with metastasis to the liver, spleen, and probable lung bases. He was recently discharged from [facility] on May 17 where he had 2 biliary drains placed after presenting for abdominal pain and jaundice secondary to chemotherapy. While hospitalized at [facility] the patient had an MRCP and imaging completed. Biliary stent placement was unsuccessful secondary to dislodgment and it was decided that 2 external biliary drains (1 in LUQ and 1 in R abdomen) should be placed. Patient's reports the patient had no appetite and decreased oral intake after being discharged from [facility] on May 17, 2021. She reports continuous drainage from biliary drains during this time. HOSPITAL COURSE: On presentation to the ED the patient was found to have an acute kidney injury, hyponatremia, hypercalcemia, leukocytosis, and transaminitis. He was given a bolus of NS in the ED and continued on maintenance fluids at a rate of 80cc/hr. The fluids were discontinued once the patient tolerated an oral diet and had a correction in his sodium level of 6 points. He was found to have a urine sodium of less than 10 and the cause of his hyponatremia was likely secondary to sodium loss in biliary drainage. The patient was educated on the importance of a solute rich diet to replete the electrolytes lost in the biliary drainage. Approximately 1.5 Liters of fluid were collected from the biliary drains during the duration of his hospitalization. His electrolytes were monitored and his sodium normalized to 136 by his third hospital day. His acute kidney injury resolved by the day of discharge secondary to adequate hydration with his creatinine returning to baseline of 1.27. The patient's hypercalcemia was noted to be secondary to malignancy and recorded as 12 at its highest. His serum calcium was repeated and downtrended after fluid hydration and the initiation of calcitonin. On the day of discharge he was given an infusion of pamidronate over 4 hours. The patient's transaminitis resolved by day three of hospitalization. His leukocytosis was still present upon discharge as this is secondary to the metastatic pancreatic cancer. I had a detailed discussion with the patient on the importance of following up with his PCP for repeat bloodwork to assess the status of his sodium and calcium. DISCHARGE MEDICATIONS: Please see below. ALLERGIES: Please see below. PHYSICAL EXAMINATION ON DISCHARGE: VITAL SIGNS: Please see below. GENERAL: Patient is lying in bed on his left side. He is pleasant and cooperative. HEENT: Normocephalic atraumatic. Bilateral scleral icterus noted. Neck is supple, no lymphadenopathy. Chest: Port in right upper chest noted, surround skin is not erythematous or indurated. CARDIOVASCULAR: Regular rate, regular rhythm. Normal S1, S2. RESPIRATORY: Decreased air intake bilaterally. Patient able to speak comfortably in full sentences. No rhonchi or wheezes noted. ABDOMINAL: There are 2 biliary drains visualized, 1 in left upper abdominal quadrant (approx 250ml) , other on the right flank (approximately 50ml). The fluid visualized in the bags is dark brown to yellow in appearance. The skin surrounding insertion sites appear clean and intact. Patient has mild RUQ and suprapubic tenderness to deep palpation. EXTREMITIES: 2+ radial pulses bilaterally. No cyanosis or lower extremity edema noted NEUROLOGICAL: Patient speaks clearly follows commands. PSYCHOLOGICAL: Appropriate mood and affect. He is alert and oriented x 3. LABORATORY DATA: Please see below. IMAGIN05/22/21 Chest x-ray: IMPRESSION: No acute cardiopulmonary process appreciated. 05/23/21 Renal US: IMPRESSION: Negative renal ultrasound. PROGNOSIS: Fair ACTIVITY: As tolerated DIET: Regular diet DISCHARGE PLAN: Discharge to home DISPOSITION: Patient is medically stable to be discharged home DISCHARGE INSTRUCTIONS: 1. Follow up with PCP within 7 days for repeat cmp to assess electrolyte status 2. Follow up with Index surgeon at [facility] who placed biliary drains within 14 days 3. Follow up with Oncologist in [place] 4. You are encouraged to eat a well rounded diet and stay hydrated to replenish the lost electrolytes in biliary drains. 5. Discontinue oral metronidazole and cefpodoxime on 05/26/21 for a total of 10 days. ITEMS TO FOLLOWUP ON ON OUTPATIENT: 1. Electrolyte levels 2. Biliary drains, evaluation for potential internal drains 3. Pancreatic cancer with further workup of possible lung metastases. DISCHARGE CONDITION: Stable TIME SPENT ON DISCHARGE: 25 minutes. Vital Signs/I&Os Vital Signs Date Time Temp Pulse Resp B/P (MAP) Pulse Ox O2 Delivery O2 Flow Rate FiO2 05/24/21 06:00 97.9 74 17 116/73 (87) 96 Room Air I&O- Last 24 Hours up to 6 AM 05/24/21 06:00 Intake Total 2230 ml Output Total 1050 ml Balance 1180 ml Laboratory Data Labs 24H Laboratory Tests 2 05/23/21 14:00: Anion Gap 8, Glomerular Filtration Rate 51.4L, Calcium Level 12.0H 05/23/21 17:59: Calcium Level 11.9H, Whole Blood Ionized Calcium 6.7*H, Albumin 2.1L 05/24/21 05:43: Anion Gap 10, Glomerular Filtration Rate > 60.0, Calcium Level 11.0H, Whole Blood Ionized Calcium 6.3*H, Albumin 2.0L, Immature Granulocyte % (Auto) 3.9H, Neutrophils (%) (Auto) 76.9H, Lymphocytes (%) (Auto) 8.0L, Monocytes (%) (Auto) 9.9H, Eosinophils (%) (Auto) 0.8, Basophils (%) (Auto) 0.5, Neutrophils # (Auto) 11.6H, Lymphocytes # (Auto) 1.2L, Monocytes # (Auto) 1.5H, Eosinophils # (Auto) 0.1, Basophils # (Auto) 0.1, Nucleated Red Blood Cells % (auto) 0.0, Magnesium Level 2.4, Total Bilirubin 4.5H, Aspartate Amino Transf (AST/SGOT) 34, Alanine Aminotransferase (ALT/SGPT) 73, Alkaline Phosphatase 359H, Total Protein 5.8L, Albumin/Globulin Ratio 0.5 CBC/BMP Laboratory Tests 05/23/21 14:00 05/24/21 05:43 Microbiology Microbiology 05/22/21 Blood Culture - Preliminary, Resulted No growth after 24 hours . All specim... 05/22/21 Blood Culture - Preliminary, Resulted No growth after 24 hours . All specim... Discharge Medications Scheduled Cefpodoxime Proxetil (Cefpodoxime Proxetil) 200 Mg Tablet, 400 MG PO BID, (Reported) started 05/17/21 x 10 days Empagliflozin (Jardiance) 10 Mg Tablet, 10 MG PO DAILY, (Reported) Fenofibrate Nanocrystallized (Fenofibrate) 145 Mg Tablet, 145 MG PO DAILY, (Reported) Metformin HCl (Metformin HCl) 500 Mg Tablet, 1,000 MG PO BID, (Reported) Metronidazole (Metronidazole) 500 Mg Tablet, 500 MG PO Q8H, (Reported) started 05/17/21 x 10 days Sertraline Hcl (Zoloft) 100 Mg Tablet, 150 MG PO DAILY, (Reported) Allergies Coded Allergies: penicillin V (Verified Allergy, Unknown, 05/22/21) GME ATTESTATION GME ATTESTATION My faculty preceptor for this patient encounter was physically present during the encounter and was fully available. All aspects of the patient interview, examination, medical decision making process, and medical care plan development were reviewed and approved by the faculty preceptor. The faculty preceptor is aware and concurs with the plan as stated in the body of this note and will attest to such by his/her cosignature. ATTENDING NOTE I, Carlos Dennis MD, have independently examined this patient and performed my own physical exam while the residents and students were with me in the room, as well as reviewed the documentation and edited where necessary. I have discussed in detail with the resident / student the findings and plan of treatment as documented by the resident / student and edited their note. I agree with their findings and treatment plan and have edited their documentation. Total time spent on this discharge including coordination of care, review of rohit rt, documentation, and actual patient contact is around 35 minutes JANNY BENTLEY DO May 24, 2021 13:52 CARLOS DENNIS MD May 26, 2021 15:31
[2021-05-24 14:00] VITALS: BP 117/76
[2021-05-24] MEDS ORDERED: PAMIDRONATE DISODIUM FOR INJ 60 MG in D5W 1,000 ML IV ONE (14:00)
== END 2021-05-24 18:57 | disposition home or self-care (01) | DRG 683 ==
LOC: M ED 15:34 → M ED INP 18:26 → ENRESERV 05-23 13:10 → M MSPAV 05-23 14:13
PROVIDERS: ADMIT Family Medicine; ATTEND Internal Medicine
DX: N17.9 Acute kidney failure, unspecified (principal); E87.1 Hypo-osmolality and hyponatremia; C25.9 Malignant neoplasm of pancreas, unspecified; C78.7 Secondary malignant neoplasm of liver and intrahepatic bile duct; C78.89 Secondary malignant neoplasm of other digestive organs; C78.01 Secondary malignant neoplasm of right lung; C78.02 Secondary malignant neoplasm of left lung; E11.9 Type 2 diabetes mellitus without complications; E83.52 Hypercalcemia; F32.A Depression, unspecified; Z85.46 Personal history of malignant neoplasm of prostate; D53.9 Nutritional anemia, unspecified; Z79.899 Other long term (current) drug therapy; Z88.0 Allergy status to penicillin; Z92.21 Personal history of antineoplastic chemotherapy; D72.825 Bandemia